=== PATIENT | male | born 1955 | race Caucasian/White ===

== ENCOUNTER 2020-11-27 08:00 | Outpatient (CLI) | payer BC ==
--- NOTE | 2020-11-27 10:48 | XRAY Report ---
PROCEDURE: Toe(s) RT INDICATIONS: TOE PAIN, RIGHT TECHNIQUE: 3 views of the right toe(s) acquired. COMPARISON: None. FINDINGS: Bones: Dorsal cortical fracture of the distal phalanx of the great toe at the interphalangeal joint No suspicious bony lesions. Mild first MTP joint degeneration. Subchondral lucency involving the pro ximal phalanx at the great toe interphalangeal joint. Soft tissues: Associated soft tissue swelling. IMPRESSION: Dorsal cortical avulsion fracture involving the distal phalanx of the great toe at the interphalangea l joint Reviewed by: Dakota Lutz MD on 11/27/2020 10:47 AM PST Approved by: Dakota Lutz MD on 11/27/2020 10:47 AM PST Station ID: [id number]
== END 2020-11-27 23:59 ==
LOC: DI.S 08:00
PROVIDERS: ATTEND Physician Assistant Medical
DX: S92.421A Displaced fracture of distal phalanx of right great toe, initial encounter for closed fracture (principal)